=== PATIENT | female | born 1965 | race Caucasian/White ===

== ENCOUNTER 2017-02-06 08:15 | Day surgery (SDC) | payer OTHER ==
[~2017-02-06 08:15] MED LIST: LACTATED RINGERS 1,000 ML IV.SOLN IV ONE; PROPOFOL 500 MG/50 ML VIAL IV ONE; SALINE FLUSH 10 ML DISP.SYRIN IVF ONE
--- NOTE | 2017-02-07 14:32 | GI Report ---
REFERRING PHYSICIAN: Dr. Mayra Farias HEEL CUTTER: Manuel Guzman MD PROCEDURE MEDICATION: Propofol as per anesthesia. INDICATIONS: Patient is a 51-year-old woman who is a high risk. Her bother had colon cancer in his 50s. She denies any changes in her stools or blood in her stools. She is referred for the above indications. She is on thyroid replacement. PROCEDURE PERFORMED: Colonoscopy. PROCEDURE: An Olympus video colonoscope was advanced through the rectum and slowly advanced all the way to the cecum. The appendiceal orifice and ileocecal valve were normal. On slow withdrawal, the cecum, ascending colon, and transverse colon with no obvious intraluminal lesions noted. Descending colon and sigmoid with no obvious intraluminal lesions noted. Retroflexion of the rectum was normal. Patient tolerated the procedure well. FINDINGS: Normal colon mucosa. RECOMMENDATIONS: 1. Continue high-fiber diet. 2. Consider re-looking at her colon in 5 years since she is a high risk with a family history of colon cancer in her brother who was in his 50s. cc: [facility]
== END 2017-02-06 08:16 ==
LOC: OPSURG 08:15
PROVIDERS: ATTEND Internal Medicine Gastroenterology
DX: Z12.11 Encounter for screening for malignant neoplasm of colon (principal); Z80.0 Family history of malignant neoplasm of digestive organs
CPT/HCPCS: J2704; J7120; 45378; S1016